=== PATIENT | female | born 1935 | race African-American/Black ===

== ENCOUNTER 2018-05-09 19:37 | Inpatient (IN) | payer MEDICARE, OTHER ==
[~2018-05-09] VITALS: Ht 163.8 cm; Wt 58.5 kg
[~2018-05-09 19:37] MED LIST: AMLODIPINE PO; LORAZEPAM PO
[2018-05-09] MEDS ORDERED: METHYLPREDNISOLONE SOD SUCC 125 MG/2 ML VIAL IV STA (19:59)
[2018-05-09] MEDS ORDERED: IPRATROPIUM/ALBUTEROL 0.5-3(2.5)MG/3ML NEB HHN ONE (20:00)
[2018-05-09] MEDS ORDERED: IBUPROFEN 600MG TABLET PO ONE (20:00)
[2018-05-09] MEDS ORDERED: MAGNESIUM 2 G PREMIX 50 ML IV ONE (20:15)
[2018-05-09] MEDS ORDERED: CLONIDINE 0.2MG TABLET PO ONE (20:15)
[2018-05-09 20:41] LABS: BASOPHILS % 0.4 % (0.0-2.0); EOSINOPHILS % 0.5 % (0.0-5.0); HEMATOCRIT. 42.2 % (36.0-48.0); HEMOGLOBIN. 13.8 g/dL (12.0-16.0); LYMPHOCYTES % 10.3 % (20.0-50.0); MEAN CORPUSCULAR HEMOGLOBIN 26.9 pg (28.0-32.0); MEAN CORPUSCULAR VOLUME 82.2 fL (81.0-99.0); MEAN PLATELET VOLUME 7.9 fl (7.4-10.4); MONOCYTES % 3.4 % (2.0-8.0); NEUTROPHILS % 85.4 % (40.0-76.0); PLATELET 272 x1000/uL (130-400); RED BLOOD CELL COUNT 5.13 mill/uL (4.2-5.4); RED CELL DISTRIBUTION WIDTH 15.9 % (11.6-14.6)
[2018-05-09 20:43] LABS: CHLORIDE 106 mEq/L (98-107)
[2018-05-09 20:46] LABS: PARTIAL THROMBOPLASTIN TIME 26.3 sec (23.4-31.0); PROTHROMBIN TIME 10.1 sec (9.4-11.6)
[2018-05-09] MEDS ORDERED: MORPHINE SULFATE 4 MG/ML CPJ (NOT FOR IM USE) IV ONE (21:45)
[2018-05-09] MEDS ORDERED: ONDANSETRON HCL 4MG/2ML VIAL IV ONE (21:45)
[2018-05-09] MEDS ORDERED: MAGNESIUM HYDROXIDE 400MG/5ML 30ML UDC PO PRN (22:15)
[2018-05-09] MEDS ORDERED: GUAIFENESIN 200MG/10ML SUGAR FREE UDC PO PRN (22:15)
[2018-05-09] MEDS ORDERED: ACETAMINOPHEN 325MG TABLET PO PRN (22:15)
[2018-05-09] MEDS ORDERED: ZOLPIDEM TARTRATE 5MG TABLET PO PRN (22:15)
[2018-05-09] MEDS ORDERED: LORAZEPAM 0.5MG TABLET PO PRN (22:15)
[2018-05-09] MEDS ORDERED: DIPHENHYDRAMINE 50MG/ML VIAL IV PRN (22:15)
[2018-05-09] MEDS ORDERED: IPRATROPIUM/ALBUTEROL 0.5-3(2.5)MG/3ML NEB INH PRN (22:15)
[2018-05-09] MEDS ORDERED: MAGNESIUM/ALUMINUM HYDROXIDE/SIMETHICONE 30ML UDC PO PRN (22:15)
[2018-05-09] MEDS ORDERED: DEXTROSE 50% WATER 50ML SYRINGE IV PRN (22:15)
[2018-05-09] MEDS ORDERED: ONDANSETRON HCL 4MG/2ML VIAL IV PRN (22:15)
[2018-05-09] MEDS ORDERED: HYDROCODONE/ACETAMINOPHEN 5/325MG TABLET PO PRN (22:30)
[2018-05-09] MEDS ORDERED: IBUPROFEN 400MG TABLET PO PRN (22:30)
[2018-05-09 23:00] VITALS: BP 124/56
[2018-05-09] MEDS ORDERED: ONDANSETRON 4MG ODT PO PRN (23:15)
[2018-05-10] MEDS: METHYLPREDNISOLONE SOD SUCC 125 MG/2 ML VIAL IV SCH ×4 (00:25→20:51)
[2018-05-10] MEDS: IPRATROPIUM/ALBUTEROL 0.5-3(2.5)MG/3ML NEB HHN SCH ×6 (00:59→21:32)
[2018-05-10 04:30] VITALS: BP 113/62
[2018-05-10] MEDS: SODIUM CHLORIDE 0.9% INJ 3ML FLUSH IVF SCH ×3 (06:00→20:52)
[2018-05-10] MEDS: OMEPRAZOLE 20MG CAPSULE EXTENDED RELEASE PO SCH ×2 (06:00→20:51)
[2018-05-10] MEDS: BLOOD SUGAR DIAGNOSTIC STRIP TEST SCH ×4 (06:12→20:48)
[2018-05-10 08:00] VITALS: BP 122/50
[2018-05-10] MEDS: AMLODIPINE 5MG TABLET PO SCH ×2 (08:56→20:51)
[2018-05-10] MEDS: GUAIFENESIN 600MG ER TABLET PO SCH ×2 (08:56→20:51)
[2018-05-10] MEDS: DOCUSATE SODIUM 100MG CAPSULE PO SCH ×2 (08:56→17:30)
[2018-05-10] MEDS: INSULIN LISPRO 100 UNITS/ML SUBCUT SCH ×4 (09:00→20:49)
[2018-05-10 12:00] VITALS: BP 136/95
[2018-05-10 16:00] VITALS: BP 116/53
[2018-05-10 18:33] LABS: BG BASE EXCESS -2.3 mmol/L (-2.0-2.0); BG CARBOXYHEMOGLOBIN 0.8 % (0.5-1.5); BG FRACTION INSPIRED OXYGEN 21; BG HCO3 ACT 21.6 mmol/L (22.0-26.0); BG METHEMOGLOBIN 0.2 % (0.0-1.5); BG OXYGEN SATURATION 83.8 % (92.0-98.5); BG PCO2 34.6 mmHg (35.0-45.0); BG PH 7.414 (7.350-7.450); BG PO2 47.6 mmHg (75.0-100.0); BG SAMPLE SITE RIGHT RADIAL; BG TOTAL HEMOGLOBIN 13.4 g/dL (12.0-18.0); BG VENT MODE ROOM AIR
[2018-05-10 19:33] VITALS: BP 129/62
[2018-05-11] VITALS: BP 135/60
[2018-05-11] MEDS: IPRATROPIUM/ALBUTEROL 0.5-3(2.5)MG/3ML NEB HHN SCH ×6 (00:41→21:45)
[2018-05-11 04:00] VITALS: BP 130/77
[2018-05-11] MEDS: METHYLPREDNISOLONE SOD SUCC 125 MG/2 ML VIAL IV SCH ×2 (06:18→13:28)
[2018-05-11] MEDS: OMEPRAZOLE 20MG CAPSULE EXTENDED RELEASE PO SCH ×2 (06:19→20:58)
[2018-05-11] MEDS: SODIUM CHLORIDE 0.9% INJ 3ML FLUSH IVF SCH ×3 (06:19→20:58)
[2018-05-11] MEDS: BLOOD SUGAR DIAGNOSTIC STRIP TEST SCH ×4 (06:25→20:43)
[2018-05-11 08:04] VITALS: BP 133/56
[2018-05-11] MEDS: DOCUSATE SODIUM 100MG CAPSULE PO SCH ×2 (08:34→19:05)
[2018-05-11] MEDS: GUAIFENESIN 600MG ER TABLET PO SCH ×2 (08:34→20:58)
[2018-05-11] MEDS: AMLODIPINE 5MG TABLET PO SCH ×2 (08:34→20:58)
[2018-05-11] MEDS: INSULIN LISPRO 100 UNITS/ML SUBCUT SCH ×4 (08:36→20:56)
[2018-05-11 11:40] VITALS: BP 125/51
[2018-05-11 16:11] VITALS: BP 138/66
[2018-05-11] MEDS: PREDNISONE 20MG TABLET PO SCH (19:06)
[2018-05-11 20:50] VITALS: BP 123/63
[2018-05-11] MEDS: BUDESONIDE 0.5MG/2ML NEB HHN SCH (21:45)
[2018-05-12] VITALS: BP 142/64
[2018-05-12] MEDS: IPRATROPIUM/ALBUTEROL 0.5-3(2.5)MG/3ML NEB HHN SCH ×5 (01:14→16:12)
[2018-05-12 04:34] VITALS: BP 136/64
[2018-05-12] MEDS: SODIUM CHLORIDE 0.9% INJ 3ML FLUSH IVF SCH ×2 (06:30→16:38)
[2018-05-12] MEDS: BLOOD SUGAR DIAGNOSTIC STRIP TEST SCH ×4 (07:27→17:37)
[2018-05-12] MEDS: INSULIN LISPRO 100 UNITS/ML SUBCUT SCH ×3 (07:50→17:36)
[2018-05-12 08:00] VITALS: BP 159/66
[2018-05-12] MEDS ORDERED: FAMOTIDINE 20MG TABLET PO SCH (09:00)
[2018-05-12] MEDS: PREDNISONE 20MG TABLET PO SCH ×2 (09:23→17:35)
[2018-05-12] MEDS: AMLODIPINE 5MG TABLET PO SCH (09:23)
[2018-05-12] MEDS: GUAIFENESIN 600MG ER TABLET PO SCH (09:23)
[2018-05-12] MEDS: DOCUSATE SODIUM 100MG CAPSULE PO SCH ×2 (09:23→17:35)
[2018-05-12 12:00] VITALS: BP 148/65
[2018-05-12] MEDS: BUDESONIDE 0.5MG/2ML NEB HHN SCH (13:25)
[2018-05-12 16:00] VITALS: BP 162/57
[2018-05-12] MEDS ORDERED: CLONIDINE 0.1MG TABLET PO PRN (16:45)
[2018-05-12 19:16] VITALS: BP 140/64
[2018-05-13] MEDS ORDERED: PREDNISONE 20MG TABLET PO SCH (09:00)
== END 2018-05-12 19:30 | disposition home health service (06) | DRG 140 ==
LOC: ER 19:59 → EDBEDREQ 21:43 → 6WST 21:43 → EDBEDREQTM 21:43 → EDBEDREQ 21:47 → EDBEDREQTM 21:47 → ENRESERV 22:15
PROVIDERS: ADMIT Internal Medicine; ATTEND Internal Medicine
DX: J44.1 Chronic obstructive pulmonary disease with (acute) exacerbation (principal); J96.21 Acute and chronic respiratory failure with hypoxia; I27.20 Pulmonary hypertension, unspecified; I10 Essential (primary) hypertension; F41.1 Generalized anxiety disorder; R73.9 Hyperglycemia, unspecified; S70.02XA Contusion of left hip, initial encounter; T38.0X5A Adverse effect of glucocorticoids and synthetic analogues, initial encounter; Z79.899 Other long term (current) drug therapy; Z87.891 Personal history of nicotine dependence; Z82.49 Family history of ischemic heart disease and other diseases of the circulatory system; Z83.3 Family history of diabetes mellitus; W01.0XXA Fall on same level from slipping, tripping and stumbling without subsequent striking against object, initial encounter; Y93.01 Activity, walking, marching and hiking; Y92.481 Parking lot as the place of occurrence of the external cause; Y99.8 Other external cause status; Z87.01 Personal history of pneumonia (recurrent)
CPT/HCPCS: 36415; 36600; 71045; 72170; 80053; 82375; 82805; 82962; 83036; 83880; 84484; 85025; 85610; 85730; 93005; 93306; 93970; 96365; 96375; 97162; 99285; J1815; J2270; J2405; J2930; J3475; J7030; J7512; J7620; J7626

== ENCOUNTER 2020-01-13 15:06 | Emergency (ER) | payer MEDICARE, MEDICAID ==
[~2020-01-13] VITALS: Ht 162.6 cm; Wt 44.9 kg
[2020-01-13 16:23] LABS: BASOPHILS % 0.4 % (0.0-2.0); EOSINOPHILS % 0.1 % (0.0-5.0); HEMATOCRIT. 38.2 % (36.0-48.0); HEMOGLOBIN. 12.6 g/dL (12.0-16.0); LYMPHOCYTES % 9.1 % (20.0-50.0); MEAN CORPUSCULAR HEMOGLOBIN 28.1 pg (28.0-32.0); MEAN PLATELET VOLUME 7.8 fl (7.4-10.4); MONOCYTES % 6.4 % (2.0-8.0); PLATELET 211 x1000/uL (130-400); RED BLOOD CELL COUNT 4.49 mill/uL (4.2-5.4); RED CELL DISTRIBUTION WIDTH 14.2 % (11.6-14.6)
[2020-01-13 16:26] LABS: CHLORIDE 103 mEq/L (98-107)
[2020-01-13 16:29] LABS: PROTHROMBIN TIME 10.5 sec (9.6-11.0)
[2020-01-13] MEDS ORDERED: ACETAMINOPHEN 325MG TABLET PO ONE (17:45)
[2020-01-13 19:33] LABS: CLARITY URINE CLOUDY (CLEAR); COLOR URINE YELLOW (YELLOW); KETONES URINE NEGATIVE (NEGATIVE); LEUKOCYTE ESTERASE URINE 3+ (NEGATIVE); NITRITE URINE POSITIVE (NEGATIVE); OCCULT BLOOD URINE NEGATIVE (NEGATIVE); PROTEIN URINE NEGATIVE (NEGATIVE); SPECIFIC GRAVITY URINE 1.013 (1.005-1.030); UROBILINOGEN URINE 0.2 E.U./dL (0.2-1.0)
[2020-01-13 19:43] VITALS: BP 151/98
== END 2020-01-13 20:48 | disposition home or self-care (01) ==
LOC: ER 15:06
DX: R10.9 Unspecified abdominal pain (principal); I11.0 Hypertensive heart disease with heart failure; I50.9 Heart failure, unspecified; J44.9 Chronic obstructive pulmonary disease, unspecified; N39.0 Urinary tract infection, site not specified
CPT/HCPCS: 36415; 71045; 72100; 80053; 81003; 83880; 84484; 85025; 93005; 93970; 99285

== ENCOUNTER 2020-01-17 11:33 | Inpatient (IN) | payer MEDICARE, OTHER ==
[~2020-01-17] VITALS: Ht 162.6 cm; Wt 45.4 kg
[2020-01-17] MEDS ORDERED: ONDANSETRON HCL 4MG/2ML INJ IV STA (12:29)
[2020-01-17] MEDS ORDERED: FAMOTIDINE 20MG/2ML VIAL IV STA (12:29)
[2020-01-17] MEDS ORDERED: HYDROCODONE/ACETAMINOPHEN 5/325MG TABLET PO ONE (13:00)
[2020-01-17 13:23] LABS: BASOPHILS % 0.3 % (0.0-2.0); EOSINOPHILS % 0.5 % (0.0-5.0); HEMATOCRIT. 39.8 % (36.0-48.0); HEMOGLOBIN. 13.2 g/dL (12.0-16.0); LYMPHOCYTES % 11.1 % (20.0-50.0); MEAN CORPUSCULAR HEMOGLOBIN 27.9 pg (28.0-32.0); MEAN CORPUSCULAR VOLUME 84.1 fL (81.0-99.0); MONOCYTES % 6.5 % (2.0-8.0); NEUTROPHILS % 81.6 % (40.0-76.0); RED BLOOD CELL COUNT 4.74 mill/uL (4.2-5.4); RED CELL DISTRIBUTION WIDTH 13.8 % (11.6-14.6)
[2020-01-17 13:29] LABS: CHLORIDE 97 mEq/L (98-107)
[2020-01-17 13:32] LABS: PROTHROMBIN TIME 10.6 sec (9.6-11.0)
[2020-01-17 13:47] LABS: PLATELET ESTIMATE NORMAL
[2020-01-17 13:48] LABS: MEAN PLATELET VOLUME 7.9 fl (7.4-10.4); PLATELET 258 x1000/uL (130-400)
[2020-01-17 14:36] LABS: CLARITY URINE TURBID (CLEAR); COLOR URINE DK YELLOW (YELLOW); KETONES URINE NEGATIVE (NEGATIVE); LEUKOCYTE ESTERASE URINE 3+ (NEGATIVE); NITRITE URINE POSITIVE (NEGATIVE); OCCULT BLOOD URINE 3+ (NEGATIVE); PROTEIN URINE 2+ (NEGATIVE); SPECIFIC GRAVITY URINE 1.018 (1.005-1.030)
[2020-01-17] MEDS ORDERED: SODIUM CHLORIDE 0.9% 500 ML IV ONE (14:40)
[2020-01-17] MEDS ORDERED: CEFTRIAXONE 1 G PREMIX 50 ML IV ONE (16:00)
[2020-01-17 17:36] VITALS: BP 178/64
[2020-01-17 18:00] VITALS: BP 178/64
[2020-01-17] MEDS ORDERED: SODIUM CHLORIDE 0.9% 1,000 ML IV SCH (19:00)
[2020-01-17] MEDS ORDERED: MORPHINE SULFATE 2 MG/ML CPJ (NOT FOR IM USE) IV PRN ×2 (19:00→23:45)
[2020-01-17 20:00] VITALS: BP 124/78
[2020-01-17] MEDS ORDERED: MAGNESIUM/ALUMINUM HYDROXIDE/SIMETHICONE 30ML UDC PO PRN (23:45)
[2020-01-17] MEDS ORDERED: ONDANSETRON HCL 4MG/2ML INJ IV PRN (23:45)
[2020-01-17] MEDS ORDERED: ACETAMINOPHEN 325MG TABLET PO PRN (23:45)
[2020-01-18] VITALS: BP 139/61
[2020-01-18] MEDS ORDERED: LEVOFLOXACIN 500MG PREMIX 100 ML IV SCH ×2 (01:00)
[2020-01-18] MEDS: HYDROCODONE/ACETAMINOPHEN 5/325MG TABLET PO PRN ×2 (01:36→09:57)
[2020-01-18 04:00] VITALS: BP 155/60
[2020-01-18 07:02] LABS: BASOPHILS % 0.3 % (0.0-2.0); EOSINOPHILS % 1.2 % (0.0-5.0); HEMATOCRIT. 33.7 % (36.0-48.0); HEMOGLOBIN. 11.3 g/dL (12.0-16.0); LYMPHOCYTES % 12.2 % (20.0-50.0); MEAN CORPUSCULAR HEMOGLOBIN 28.1 pg (28.0-32.0); MEAN CORPUSCULAR VOLUME 83.9 fL (81.0-99.0); MEAN PLATELET VOLUME 7.8 fl (7.4-10.4); MONOCYTES % 9.8 % (2.0-8.0); NEUTROPHILS % 76.5 % (40.0-76.0); PLATELET 242 x1000/uL (130-400); RED BLOOD CELL COUNT 4.02 mill/uL (4.2-5.4); RED CELL DISTRIBUTION WIDTH 13.8 % (11.6-14.6)
[2020-01-18 07:06] LABS: CHLORIDE 102 mEq/L (98-107)
[2020-01-18 07:12] LABS: PHOSPHORUS 2.4 mg/dL (2.5-4.9)
[2020-01-18 08:00] VITALS: BP 168/74
[2020-01-18] MEDS ORDERED: ENOXAPARIN 40MG/0.4ML SYR SUBCUT SCH (09:00)
[2020-01-18 12:00] VITALS: BP 168/82
[2020-01-18 16:00] VITALS: BP_SYST 119; BP_SYST 135; BP_DIAS 53; BP_DIAS 63
[2020-01-18] MEDS: AMLODIPINE 5MG TABLET PO SCH (18:19)
[2020-01-18 20:00] VITALS: BP 151/72
[2020-01-18] MEDS: SODIUM CHLORIDE 0.9% 1,000 ML IV SCH ×2 (21:24)
[2020-01-19] VITALS (8 sets, daily range): BP systolic 124–168; BP diastolic 53–72
[2020-01-19] MEDS ORDERED: LEVOFLOXACIN 250MG PREMIX 50 ML IV SCH (01:00)
[2020-01-19] MEDS: HYDROCODONE/ACETAMINOPHEN 5/325MG TABLET PO PRN ×2 (02:29→06:16)
[2020-01-19 06:19] LABS: BASOPHILS % 0.3 % (0.0-2.0); EOSINOPHILS % 1.3 % (0.0-5.0); HEMATOCRIT. 31.7 % (36.0-48.0); HEMOGLOBIN. 10.7 g/dL (12.0-16.0); LYMPHOCYTES % 14.4 % (20.0-50.0); MEAN CORPUSCULAR HEMOGLOBIN 28.5 pg (28.0-32.0); MEAN PLATELET VOLUME 7.3 fl (7.4-10.4); MONOCYTES % 9.4 % (2.0-8.0); NEUTROPHILS % 74.6 % (40.0-76.0); PLATELET 233 x1000/uL (130-400); RED BLOOD CELL COUNT 3.77 mill/uL (4.2-5.4); RED CELL DISTRIBUTION WIDTH 13.7 % (11.6-14.6)
[2020-01-19 06:22] LABS: CHLORIDE 104 mEq/L (98-107)
[2020-01-19] MEDS: AMLODIPINE 5MG TABLET PO SCH (08:13)
[2020-01-19] MEDS ORDERED: ENOXAPARIN 30MG/0.3ML SYR SUBCUT SCH (09:00)
[2020-01-19] MEDS: SODIUM CHLORIDE 0.9% 1,000 ML IV SCH (09:20)
[2020-01-19] MEDS ORDERED: CLONIDINE 0.1MG TABLET PO PRN (12:30)
[2020-01-19] MEDS ORDERED: LEVO500T2 MT (13:17)
[2020-01-19] MEDS ORDERED: LORA-249 MT (13:17)
[2020-01-19] MEDS ORDERED: AMLO10TA80 MT (13:17)
[2020-01-19] MEDS ORDERED: HYDR-4001 MT (15:17)
[2020-01-19] MEDS ORDERED: AMLODIPINE 5MG TABLET PO SCH (21:00)
== END 2020-01-19 16:16 | disposition home or self-care (01) | DRG 463 ==
LOC: ER 11:33 → 6EST 14:48 → EDBEDREQ 14:50 → EDBEDREQTM 14:50 → ENRESERV 15:00
PROVIDERS: ADMIT Internal Medicine Nephrology; ATTEND Internal Medicine Nephrology
DX: N39.0 Urinary tract infection, site not specified (principal); E87.1 Hypo-osmolality and hyponatremia; E87.8 Other disorders of electrolyte and fluid balance, not elsewhere classified; J44.9 Chronic obstructive pulmonary disease, unspecified; I10 Essential (primary) hypertension; Z85.42 Personal history of malignant neoplasm of other parts of uterus; Z87.440 Personal history of urinary (tract) infections; Z79.899 Other long term (current) drug therapy
CPT/HCPCS: 36415; 71045; 74176; 80048; 80053; 81003; 83735; 84100; 84484; 85025; 93005; 96374; 97162; 99285; J0696; J1650; J1956; J2270; J2405; J3490; J7030; J7040

== ENCOUNTER 2020-02-04 14:06 | Emergency (ER) | payer MEDICARE, OTHER ==
[~2020-02-04] VITALS: Ht 165.1 cm; Wt 48.0 kg
[~2020-02-04 14:06] MED LIST changes: +AMLO10TA80 MT; +HYDR-4001 MT; +LEVO500T2 MT; +LORA-249 MT
[2020-02-04 15:14] LABS: BASOPHILS % 0.9 % (0.0-2.0); EOSINOPHILS % 0.5 % (0.0-5.0); HEMATOCRIT. 32.6 % (36.0-48.0); HEMOGLOBIN. 10.8 g/dL (12.0-16.0); LYMPHOCYTES % 8.2 % (20.0-50.0); MEAN CORPUSCULAR HEMOGLOBIN 27.6 pg (28.0-32.0); MEAN CORPUSCULAR VOLUME 83.9 fL (81.0-99.0); MEAN PLATELET VOLUME 7.1 fl (7.4-10.4); MONOCYTES % 3.9 % (2.0-8.0); NEUTROPHILS % 86.5 % (40.0-76.0); PLATELET 460 x1000/uL (130-400); RED BLOOD CELL COUNT 3.89 mill/uL (4.2-5.4); RED CELL DISTRIBUTION WIDTH 14.4 % (11.6-14.6)
[2020-02-04 15:20] LABS: PROTHROMBIN TIME 11.2 sec (9.6-11.0)
[2020-02-04 15:24] LABS: CHLORIDE 95 mEq/L (98-107)
[2020-02-04] MEDS ORDERED: SODIUM CHLORIDE 0.9% 1,000 ML IV ONE (15:45)
[2020-02-04] MEDS ORDERED: SODIUM CHLORIDE 0.9% 1,000 ML IV NR (16:00)
[2020-02-04 19:02] LABS: CLARITY URINE CLEAR (CLEAR); COLOR URINE YELLOW (YELLOW); KETONES URINE 1+ (NEGATIVE); LEUKOCYTE ESTERASE URINE TRACE (NEGATIVE); NITRITE URINE NEGATIVE (NEGATIVE); OCCULT BLOOD URINE NEGATIVE (NEGATIVE); PROTEIN URINE NEGATIVE (NEGATIVE); SPECIFIC GRAVITY URINE 1.011 (1.005-1.030)
[2020-02-04] MEDS ORDERED: CEFTRIAXONE 1 G PREMIX 50 ML IV NR (19:30)
[2020-02-04] MEDS ORDERED: ASPIRIN 325MG EC TABLET PO ONE (19:45)
[2020-02-04] MEDS ORDERED: HEMORRHOIDAL SUPP PR ONE (19:45)
[2020-02-04] MEDS ORDERED: ATORVASTATIN CALCIUM 40MG TABLET PO SCH (19:45)
[2020-02-04 21:52] VITALS: BP 137/56
== END 2020-02-04 22:19 | disposition short-term general hospital (02) ==
LOC: ER 14:06 → CANBEDREQ 22:42
DX: K62.5 Hemorrhage of anus and rectum (principal); R20.0 Anesthesia of skin; J44.9 Chronic obstructive pulmonary disease, unspecified; F41.9 Anxiety disorder, unspecified; I10 Essential (primary) hypertension; F03.90 Unspecified dementia, unspecified severity, without behavioral disturbance, psychotic disturbance, mood disturbance, and anxiety; Z79.899 Other long term (current) drug therapy; Z88.5 Allergy status to narcotic agent
CPT/HCPCS: 36415; 70450; 71045; 80053; 81003; 83690; 85025; 85610; 96374; 99285; J0696

== ENCOUNTER 2020-02-26 14:22 | Emergency (ER) | payer MEDICARE, OTHER ==
[~2020-02-26] VITALS: Ht 152.4 cm; Wt 40.8 kg
[2020-02-26 14:37] VITALS: BP 125/62
[2020-02-26 16:07] LABS: CHLORIDE 105 mEq/L (98-107)
[2020-02-26 16:12] LABS: HEMOGLOBIN. 10.7 g/dL (12.0-16.0); MEAN CORPUSCULAR VOLUME 82.6 fL (81.0-99.0); MEAN PLATELET VOLUME 8.4 fl (7.4-10.4); PLATELET 387 x1000/uL (130-400); RED BLOOD CELL COUNT 4.12 mill/uL (4.2-5.4); RED CELL DISTRIBUTION WIDTH 15.2 % (11.6-14.6)
[2020-02-26] MEDS ORDERED: EPINEPHRINE 0.1MG/ML (1:10,000) 10ML SYR ONE (16:58)
[2020-02-26 17:28] LABS: NUCLEATED RED BLOOD CELLS 2 /100 WBC
[2020-02-26 17:29] LABS: PLATELET ESTIMATE NORMAL
== END 2020-02-26 19:35 | disposition expired ==
LOC: ER 14:31 → CANBEDREQ 18:13 → ER 19:35
DX: I46.9 Cardiac arrest, cause unspecified (principal); J44.9 Chronic obstructive pulmonary disease, unspecified; I10 Essential (primary) hypertension; F41.9 Anxiety disorder, unspecified; F03.90 Unspecified dementia, unspecified severity, without behavioral disturbance, psychotic disturbance, mood disturbance, and anxiety; Z85.9 Personal history of malignant neoplasm, unspecified; Z86.73 Personal history of transient ischemic attack (TIA), and cerebral infarction without residual deficits; Z88.5 Allergy status to narcotic agent
CPT/HCPCS: 36415; 71045; 80053; 82962; 83880; 84484; 85025; 93005; 99285; J3490